=== PATIENT | female | born 1955 | race Caucasian/White ===

== ENCOUNTER 2020-01-16 08:47 | Emergency (ER) | payer BC, OTHER ==
[2020-01-16] MEDS ORDERED: Iopamidol 370 76% 100 ML VIAL ONE (10:23)
[2020-01-16 10:27] LABS: ALT (SGPT) 20 U/L (8-55); AST (SGOT) 19 U/L (5-34); Albumin 4.4 g/dL (3.4-4.8); Alkaline Phosphatase 76 U/L (40-110); Anion Gap 16 mmol/L (10-20); BUN (Urea Nitrogen) 12 mg/dL (9.8-20.1); Bilirubin, Total 0.7 mg/dL (0.2-1.2); Calc. Creatinine Clearance 0 mL/min (70-130); Calcium 9.3 mg/dL (7.8-10.44); Carbon Dioxide 23 mmol/L (23-31); Chloride 102 mmol/L (98-107); Estimated GFR-MDRD 73; Globulin 3.6 g/dL (2.4-3.5); Glucose 128 mg/dL (80-115); Potassium 3.6 mmol/L (3.5-5.1); Sodium 137 mmol/L (136-145)
[2020-01-16 10:29] LABS: Mean Corpuscular HGB CONC 32.1 g/dL (32.0-36.0); Mean Corpuscular Volume 90.4 fL (78.0-98.0); Platelet Count 220 thou/uL (130-400); RBC Distribution Width 11.8 % (11.5-14.5); Red Blood Cell (RBC) Count 4.84 mill/uL (4.20-5.40)
[2020-01-16] MEDS ORDERED: Aspirin Chewable 81 MG TAB ONE (10:36)
[2020-01-16 10:40] LABS: Lymphocytes 11 % (21-51); MDiff Complete? YES; Monocytes 11 % (0-10); Neutrophil 77 % (42-75); Platelet Morphology Comment Appears Adequate; RBC Morphology Normal
[2020-01-16 10:44] LABS: Bilirubin Small (Negative); Blood, Urine Trace (Negative); Clarity Cloudy (Clear); Glucose, Urine (Dipstick) Negative (Negative); Ketone, Urine Trace mg/dL (Negative); Leukocyte Small (Negative); Nitrite Negative (Negative); Protein, Urine (Dipstick) 30 mg/dL (Neg-Trace); Urobilinogen 0.2 mg/dL (Less than 2); pH, Urine 5.5 (5.0-9.0)
[2020-01-16 10:54] LABS: Bacteria/HPF 2+ HPF (None Seen); RBC/HPF 0-3 HPF (0-3); Specific Gravity, Urine 1.028 (1.002-1.036); Squamous Epithelial 0-3 HPF (0-3); WBC/HPF 21-50 HPF (0-3)
[2020-01-16] MEDS ORDERED: Nitrofurantoin Monohyd/M-Cryst 100 MG CAP ONE ×2 (11:24→11:40)
--- NOTE | 2020-01-16 14:51 | RAD ---
PORTABLE CHEST: Date: 01/16/2020 An AP portable film at 1005 hours is compared with the 01/10/2009 study. The heart is normal in size and the lungs are clear. There is no vascular congestion or edema. There are no effusions. IMPRESSION: No acute thoracic finding. POS: HOME
--- NOTE | 2020-01-16 14:52 | CT ---
CT ANGIO CHEST: Date; 01/16/[address] of the chest was done after a bolus of IV contrast. There is good opacification of the pulmonary arteries. No filling defects to suggest emboli. No evide nce of aortic aneurysm or dissection. No pericardial effusion seen. No mediastinal mass or adenopathy . A small hiatal hernia was noted. Lungs are clear with no infiltrates of concern. No effusions seen. The scans into the upper abdomen showed no additional findings. IMPRESSION: No evidence of pulmonary embolism or other acute thoracic process. Preliminary report called to Caryn in the ER at 1122 hours on 01/16/2020. CODE CR. POS: HOME
[2020-01-17 15:02] LABS: SARS-CoV-2 MS2 Positive; SARS-CoV-2 N Gene Negative; SARS-CoV-2 S Gene Negative; SARS-CoV-2 orf1ab Negative
== END 2020-01-16 11:50 | disposition home or self-care (01) ==
LOC: BURERS 08:47
DX: R06.02 Shortness of breath (principal); N39.0 Urinary tract infection, site not specified; R07.89 Other chest pain; Z20.828 Contact with and (suspected) exposure to other viral communicable diseases; I10 Essential (primary) hypertension
CPT/HCPCS: 71045; 71275; 80053; 81003; 81015; 83605; 83880; 84484; 85025; 85379; 87635; 93005; 96360; Q9967; U0003